=== PATIENT | male | born 1985 | race Caucasian/White ===

== ENCOUNTER 2018-06-12 17:17 | Emergency (ER) | payer OTHER ==
[~2018-06-12] VITALS: Ht 187.9 cm; Wt 93.0 kg
== END 2018-06-12 18:30 | disposition left against medical advice (07) ==
LOC: ED 17:17
DX: S49.91XA Unspecified injury of right shoulder and upper arm, initial encounter (principal); X58.XXXA Exposure to other specified factors, initial encounter; Y93.89 Activity, other specified; Y92.9 Unspecified place or not applicable; Y99.8 Other external cause status